=== PATIENT | female | born 1955 ===

== ENCOUNTER 2021-12-30 13:00 | Outpatient (RCR) | payer MEDICARE, BC, SELFPAY | END 2022-02-16 16:05 | disposition home or self-care (01) | LOC: HO.PT 13:00 | PROVIDERS: PCP Internal Medicine; Visit Provider Obstetrics & Gynecology | DX: R15.9 Full incontinence of feces (principal); N32.81 Overactive bladder | CPT/HCPCS: 97112; 97140; 97161 ==

== ENCOUNTER 2023-11-18 07:05 | Day surgery (SDC) | payer MEDICARE, SELFPAY ==
[2023-11-16 14:21] VITALS: BMI 24.8
--- NOTE | 2023-11-17 09:27 | HO.ANESPROP2 ---
Documented by User: Anuradha Justin NP 11/17/23 09:28 HPI - Anesthesia Eval Consult details Narrative: 68yo F for Colonoscopy Anesthesia Pre-Procedure Meds Is the patient on any of the following meds?: SGLT2 Inhib PMFSH Past Medical History Medical History (Updated 11/16/23 @ 14:19 by Yanira Fitzgerald RN) Basal cell carcinoma Hx of lipoma Hyperlipidemia Hiatal hernia GERD (gastroesophageal reflux disease) HTN (hypertension) Diabetes Surgical History Surgical History (Updated 11/16/23 @ 14:19 by Yanira Fitzgerald RN) Hx of repair of right rotator cuff H/O colonoscopy History of esophagogastroduodenoscopy (EGD) Social History Social History Are you a primary manager critical care unit to a significant other at home: No Do you presently have visiting nurse or other home services: No Patient Tobacco Use Status: Never used Tobacco Use of substances other than those prescribed or required for medical reasons: No Are you DNR?: No Advance Directives: No Advance Directives Information Provided: Yes Meds Allergies Allergy/AdvReac Type Severity Reaction Status Date / Time sulfamethoxazole Allergy Unknown Verified 11/18/23 07:20 [From Bactrim] trimethoprim [From Bactrim] Allergy Unknown Verified 11/18/23 07:20 Home Medications ?Medication ?Instructions ?Recorded ?Confirmed ?Last Taken ?Type atorvastatin 20 mg tablet 20 mg PO BEDTIME 11/16/23 11/18/23 Unknown History empagliflozin 25 mg tablet 12.5 mg DAILY 11/16/23 11/18/23 11/14/23 History (Jardiance) ezetimibe 10 mg tablet (Zetia) 10 mg PO DAILY 11/16/23 11/18/23 Unknown History metformin 500 mg tablet,extended 500 mg PO DAILY 11/16/23 11/18/23 Unknown History release 24 hr omeprazole 20 mg capsule,delayed 20 mg PO DAILY PRN GERD 11/16/23 11/18/23 Unknown History release Exam Height,Weight and Vital Signs: Height 5 ft 2.5 in Weight 62.596 kg Assessment and Plan Assessment Anesthesia Assessment: Chart Reviewed Documented by User: Kaitlyn Sagastume MD 11/18/23 08:51 PMFSH Past Medical History Medical History (Updated 11/16/23 @ 14:19 by Yanira Fitzgerald, RN) Basal cell carcinoma Hx of lipoma Hyperlipidemia Hiatal hernia GERD (gastroesophageal reflux disease) HTN (hypertension) Diabetes Family History Family history of problems with anesthesia: No Surgical History Surgical History (Updated 11/16/23 @ 14:19 by Yanira Fitzgerald RN) Hx of repair of right rotator cuff H/O colonoscopy History of esophagogastroduodenoscopy (EGD) History of Problems with Anesthesia: No Social History Social History Are you a primary manager critical care unit to a significant other at home: No Do you presently have visiting nurse or other home services: No Patient Tobacco Use Status: Never used Tobacco Use of substances other than those prescribed or required for medical reasons: No Are you DNR?: No Advance Directives: No Advance Directives Information Provided: Yes Meds Allergies Allergy/AdvReac Type Severity Reaction Status Date / Time sulfamethoxazole Allergy Unknown Verified 11/18/23 07:20 [From Bactrim] trimethoprim [From Bactrim] Allergy Unknown Verified 11/18/23 07:20 Home Medications ?Medication ?Instructions ?Recorded ?Confirmed ?Last Taken ?Type atorvastatin 20 mg tablet 20 mg PO BEDTIME 11/16/23 11/18/23 Unknown History empagliflozin 25 mg tablet 12.5 mg DAILY 11/16/23 11/18/23 11/14/23 History (Jardiance) ezetimibe 10 mg tablet (Zetia) 10 mg PO DAILY 11/16/23 11/18/23 Unknown History metformin 500 mg tablet,extended 500 mg PO DAILY 11/16/23 11/18/23 Unknown History release 24 hr omeprazole 20 mg capsule,delayed 20 mg PO DAILY PRN GERD 11/16/23 11/18/23 Unknown History release Exam Airway Mallampati Class: II TM Dist: >3cm Neck ROM: Full Assessment and Plan Assessment Anesthesia Assessment: Anesthesia Plan Discussed Final Anesthetic Review Family History of Problems with Anesthesia: No History of Problems with Anesthesia: No NPO: Yes ASA Class: III Final Preanesthetic Review: No Changes in Pt Med Stat, Meds/Allgs Chart Reviewed, Consent Obtained/Reviewed and Anes Risks/Benef Reviewed Patient Risk: Intermediate Procedure Risk: Low Anesthetic Plan Anesthetic Plan: TIVA Disposition: Standard PACU
[2023-11-18 07:23] VITALS: BMI 24.8
[2023-11-18 07:43] VITALS: BP 137/48; PULSE 67; RESP 18; TEMP 36.4; O2SAT 92
[2023-11-18 07:52] LABS: Glucose, Whole Blood 129 mg/dL (60-115)
[2023-11-18] MEDS: Lactated Ringers 1,000 ML 100 ML IVCONT (08:09)
--- NOTE | 2023-11-18 08:35 | P.HPSUR_ITS ---
Pre-Procedural Eval Section A - 24 Hr Update-Section A only Date of Service: 11/18/23 Section B - Complete if H&P > 30 days Chief Complaint: screening Details of Present Illness: see H&P no changes Relevant Family History (Specify if Yes): No Relevant Social History: None Present Medications: see Short Stay Collaborative assessment Medical History: No relevant PMH History of Previous Operations: No relevant previous surgery Allergies: Allergies Allergy/AdvReac Type Severity Reaction Status Date / Time sulfamethoxazole Allergy Unknown Verified 11/18/23 07:20 [From Bactrim] trimethoprim [From Bactrim] Allergy Unknown Verified 11/18/23 07:20 Review of Systems Sugical H&P ROS: Negative: Constitution, Cardiovascular, Respiratory, Neurological, Psychiatric, Hem-Onc, Allergic/Immunologic, Gastrointestinal, Genitourinary, Musculoskeletal, Integumentary, Endocrine and Eyes/Ears/Nose/Throat Exam Surgical H&P Exam: Normal: HEENT, Normal: Heart, Normal: Lungs, Normal: Extremi ties, Normal: Abdomen, Normal: Skin and Normal: Neurological Plan Diagnosis/Plan: Unchanged I have reviewed the history and physical and performed a pertinent physical examination on my patient. No changes have occurred unless specified. Time Spent With Patient Time: Total time managing care of this patient today ____ minutes.
[2023-11-18 09:16] VITALS: BP 105/40; PULSE 60; RESP 14; TEMP 36.1; O2SAT 95
--- NOTE | 2023-11-18 09:28 | OP_ITS ---
DATE OF SERVICE: 11/18/2023 SURGEON: Leonidas Johnson MD INDICATIONS: Colon cancer screening. PREOPERATIVE DIAGNOSIS: POSTOPERATIVE DIAGNOSIS: PROCEDURE PERFORMED: Colonoscopy to the terminal ileum with biopsy. ESTIMATED BLOOD LOSS: COMPLICATIONS: ANESTHESIA: Monitored anesthesia care. ASSISTANTS: SPECIMENS: DESCRIPTION OF PROCEDURE: A history and physical was performed. The risks and benefits of the procedure were explained to the patient and informed consent was obtained. The patient was placed in the left lateral decubitus position. A digital rectal exam was performed and was found to be normal. The Olympus pediatric video colonoscope was introduced into the rectum and advanced to the cecum. The cecum was identified by transillumination, palpation, and identification of the ileocecal valve. Examination was performed and the scope was removed. She tolerated the procedure well and was returned to recovery area in stable condition. FINDINGS: The terminal ileum was examined and appeared normal. The visualized colonic mucosa was within normal limits without evidence of masses or ulcers. A single polyp measuring less than 5 mm was identified at 30 cm and removed with biopsy forceps. No other polyps were identified. The quality of the prep was good. Retroflexed examination showed some small internal hemorrhoids. IMPRESSION: Colon polyp. RECOMMENDATION: Follow up the biopsy results. MD SARY Holcomb/DAVIDL / [id number]
[2023-11-18 09:31] VITALS: BP 126/42; PULSE 62; RESP 16; TEMP 36.1; O2SAT 96
== END 2023-11-18 10:05 | disposition home or self-care (01) ==
PROVIDERS: PCP Internal Medicine; Visit Provider Internal Medicine Gastroenterology
PROC: 0DJD8ZZ Inspection of Lower Intestinal Tract, Via Natural or Artificial Opening Endoscopic (ICD-10-PCS; CPT 45378; principal; 2023-11-18 08:30)
DX: Z12.11 Encounter for screening for malignant neoplasm of colon (principal); D12.5 Benign neoplasm of sigmoid colon; K64.8 Other hemorrhoids; Z86.0101 Personal history of adenomatous and serrated colon polyps; E11.9 Type 2 diabetes mellitus without complications; I10 Essential (primary) hypertension; E78.5 Hyperlipidemia, unspecified; K21.9 Gastro-esophageal reflux disease without esophagitis; Z79.84 Long term (current) use of oral hypoglycemic drugs; Z79.02 Long term (current) use of antithrombotics/antiplatelets; Z79.899 Other long term (current) drug therapy
CPT/HCPCS: 45380; 82947; 88305; 88341; 88342; J2003; J2704